=== PATIENT | male | born 1955 | race Caucasian/White ===

== ENCOUNTER 2024-01-03 13:00 | Emergency (ER) | payer MEDICARE, OTHER ==
[~2024-01-03] VITALS: Ht 177.8 cm; Wt 82.0 kg
[2024-01-03 13:10] VITALS: O2SAT 99
[2024-01-03 16:41] VITALS: TEMP 97.4
[2024-01-03] MEDS: HYDROCODONE/ACETAMINOPHEN 5/325MG TABLET PO ONE (17:49)
[2024-01-03 20:00] VITALS: BP 160/88; PULSE 110; RESP 20
== END 2024-01-03 20:30 | disposition home or self-care (01) ==
LOC: ER 13:03
DX: L89.90 Pressure ulcer of unspecified site, unspecified stage (principal); R06.02 Shortness of breath; J98.8 Other specified respiratory disorders; J44.9 Chronic obstructive pulmonary disease, unspecified; E11.9 Type 2 diabetes mellitus without complications; K21.9 Gastro-esophageal reflux disease without esophagitis; E78.00 Pure hypercholesterolemia, unspecified; I10 Essential (primary) hypertension; Z86.73 Personal history of transient ischemic attack (TIA), and cerebral infarction without residual deficits; Z88.0 Allergy status to penicillin
CPT/HCPCS: 99285

== ENCOUNTER 2024-03-06 10:35 | Inpatient (IN) | payer MEDICARE, MEDICAID ==
[~2024-03-06] VITALS: Ht 162.6 cm; Wt 68.0 kg
[2024-03-06] MEDS: MORPHINE SULFATE 4 MG/ML INJ (FOR IV/IM USE) IV STA (11:11)
[2024-03-06] MEDS: ONDANSETRON HCL 4MG/2ML INJ IV STA (11:11)
[2024-03-06] MEDS: SODIUM CHLORIDE 0.9% 500 ML IV ONE (11:12)
[2024-03-06 11:24] LABS: BASOPHILS % 0.9 % (0.0-2.0); EOSINOPHILS % 0.2 % (0.0-5.0); HEMATOCRIT. 27.6 % (42.0-52.0); HEMOGLOBIN. 9.5 g/dL (14.0-18.0); LYMPHOCYTES % 21.3 % (20.0-50.0); MEAN CORPUSCULAR HEMOGLOBIN 30.8 pg (28.0-32.0); MEAN CORPUSCULAR HGB CONC 34.5 g/dL (31.0-37.0); MEAN CORPUSCULAR VOLUME 89.4 fL (80.0-94.0); MEAN PLATELET VOLUME 6.9 fl (7.4-10.4); MONOCYTES % 7.1 % (2.0-8.0); NEUTROPHILS % 70.5 % (40.0-76.0); PLATELET 564 x1000/uL (130-400); RED BLOOD CELL COUNT 3.09 mill/uL (4.7-6.1); RED CELL DISTRIBUTION WIDTH 17.8 % (11.6-14.6); WHITE BLOOD COUNT 6.6 x1000/uL (4.5-11.0)
[2024-03-06 11:37] LABS: INR 1.1; PROTHROMBIN TIME 11.9 sec (9.6-11.0)
[2024-03-06 11:38] LABS: CARBON DIOXIDE 33 mEq/L (21-32); CHLORIDE 100 mEq/L (98-107); SODIUM 138 mEq/L (136-145)
[2024-03-06 11:43] LABS: CREATININE 0.7 mg/dL (0.6-1.3); GLUCOSE 165 mg/dL (70-105)
[2024-03-06 11:44] LABS: UREA NITROGEN BLOOD 12 mg/dL (9-23)
[2024-03-06 11:58] LABS: CLARITY URINE TURBID (CLEAR); COLOR URINE YELLOW (YELLOW); GLUCOSE URINE NEGATIVE (NEGATIVE); KETONES URINE TRACE (NEGATIVE); LEUKOCYTE ESTERASE URINE 3+ (NEGATIVE); NITRITE URINE NEGATIVE (NEGATIVE); OCCULT BLOOD URINE 1+ (NEGATIVE); PH URINE 8.5 (4.5-8.0); PROTEIN URINE TRACE (NEGATIVE); SPECIFIC GRAVITY URINE 1.009 (1.005-1.030); UROBILINOGEN URINE 0.2 E.U./dL (0.2-1.0)
[2024-03-06 12:06] LABS: POTASSIUM 2.7 mEq/L (3.5-5.1)
[2024-03-06] MEDS ORDERED: KCL 10MEQ/50ML PREMIX 100 ML IV SCH ×2 (13:00→14:00)
[2024-03-06 13:02] LABS: SQUAMOUS EPITHELIAL CELL URINE NONE SEEN /lpf (RARE/1+); TRIPLE PHOSPHATE CRYSTAL URINE 1+ /lpf
[2024-03-06 13:03] LABS: BACTERIA URINE 4+
[2024-03-06] MEDS: DILTIAZEM HCL 5MG/ML 5ML VIAL IV ONE (14:39)
[2024-03-06] MEDS: KCL 20MEQ/100ML PREMIX 100 ML IV SCH (14:40)
[2024-03-06] MEDS: LORAZEPAM 2MG/ML INJ IV ONE (15:05)
[2024-03-06] MEDS: DILTIAZEM HCL 125 MG in DEXT 5% WATER 100 ML IV ONE (15:13)
[2024-03-06] MEDS ORDERED: DEXTROSE 50% WATER 50ML SYRINGE IV PRN (15:15)
[2024-03-06] MEDS ORDERED: IPRATROPIUM/ALBUTEROL 0.5-3(2.5)MG/3ML NEB HHN PRN (15:15)
[2024-03-06] MEDS ORDERED: ACETAMINOPHEN 650MG/20.3ML UDC GT PRN (15:15)
[2024-03-06] MEDS ORDERED: CLONIDINE 0.1MG TABLET PO PRN (15:15)
[2024-03-06] MEDS ORDERED: HYDR25TA78 PO (15:29)
[2024-03-06] MEDS ORDERED: LORA-250 (15:29)
[2024-03-06] MEDS ORDERED: AMLO10TA80 PO (15:29)
[2024-03-06] MEDS ORDERED: HYDR-4001 PO (15:29)
[2024-03-06] MEDS ORDERED: CLON0.3T PO (15:29)
[2024-03-06] MEDS ORDERED: ATOR-2 PO (15:29)
[2024-03-06] MEDS ORDERED: RIVA20TA PO (15:29)
[2024-03-06] MEDS ORDERED: NALOXONE HCL 0.4MG/ML VIAL IV PRN (16:00)
[2024-03-06 16:28] LABS: IRON 26 ug/dL (65-175)
[2024-03-06] MEDS: CEFTRIAXONE 2GM/50ML 50 ML IV ONE (16:29)
[2024-03-06] MEDS: PANTOPRAZOLE SODIUM 40 MG/VIAL IV SCH (16:30)
[2024-03-06 16:31] LABS: PHOSPHORUS 3.1 mg/dL (2.5-4.9); TOTAL IRON BINDING CAPACITY 218 ug/dl (250-425)
[2024-03-06] MEDS: CLONIDINE HCL 0.1MG/24HR PATCH TD SCH (16:56)
[2024-03-06] MEDS: HYDROCODONE/ACETAMINOPHEN 5/325MG TABLET PO PRN (17:10)
[2024-03-06] MEDS: BLOOD SUGAR DIAGNOSTIC STRIP TEST SCH (17:26)
[2024-03-06] MEDS: KCL 20MEQ/100ML PREMIX 100 ML IV NR (17:34)
[2024-03-06] MEDS: INSULIN LISPRO 100 UNITS/ML SUBCUT SCH (17:35)
[2024-03-06 17:49] LABS: FERRITIN 132 ng/mL (22-322); FOLIC ACID (FOLATE) SERUM > 20.00 ng/mL (>5.38)
[2024-03-06 17:50] LABS: VITAMIN B12 SERUM 589 pg/mL (211-911)
[2024-03-06] MEDS: POTASSIUM CHLORIDE 20MEQ/PACKET PEG NR (18:58)
[2024-03-06] MEDS: IOHEXOL-350 100 ML BOTTLE ONE (19:04)
[2024-03-06] MEDS ORDERED: METOPROLOL TARTRATE 25MG TABLET PO SCH (21:00)
[2024-03-06 22:00] VITALS: BP 172/80; PULSE 87; RESP 23; TEMP 97.9
[2024-03-06] MEDS: ATORVASTATIN CALCIUM 40MG TABLET PO SCH (22:12)
[2024-03-06] MEDS: METOPROLOL TARTRATE 25MG TABLET PO SCH (22:14)
[2024-03-06 22:15] LABS: CREATINE KINASE 43 IU/L (46-171); CREATINE KINASE MB FRACTION 1.8 ng/mL (0.5-3.6)
[2024-03-06 22:16] LABS: TROPONIN I HIGH SENSITIVITY 29 ng/L (3.0-53)
[2024-03-06] MEDS: ACETAMINOPHEN 650MG/20.3ML UDC GT PRN (23:26)
[2024-03-07] VITALS (15 sets, daily range): BP systolic 92–220; BP diastolic 57–101; PULSE 61–84; RESP 15–30; TEMP 97.3–98.5
[2024-03-07 02:04] LABS: CREATINE KINASE MB FRACTION 1.6 ng/mL (0.5-3.6); TROPONIN I HIGH SENSITIVITY 34 ng/L (3.0-53)
[2024-03-07 02:05] LABS: CREATINE KINASE 44 IU/L (46-171)
[2024-03-07] MEDS ORDERED: MELATONIN 3MG TABLET PO SCH (02:30)
[2024-03-07] MEDS: MELATONIN 3MG TABLET PO PRN (02:47)
[2024-03-07 03:09] LABS: CLARITY URINE TURBID (CLEAR); COLOR URINE YELLOW (YELLOW); GLUCOSE URINE NEGATIVE (NEGATIVE); KETONES URINE NEGATIVE (NEGATIVE); LEUKOCYTE ESTERASE URINE 2+ (NEGATIVE); NITRITE URINE NEGATIVE (NEGATIVE); OCCULT BLOOD URINE 1+ (NEGATIVE); PH URINE 8.5 (4.5-8.0); PROTEIN URINE 1+ (NEGATIVE); SPECIFIC GRAVITY URINE 1.024 (1.005-1.030); UROBILINOGEN URINE 0.2 E.U./dL (0.2-1.0)
[2024-03-07 03:21] LABS: *AMPHETAMINES SCREEN URINE NEGATIVE (NEGATIVE); *BARBITURATES SCREEN URINE NEGATIVE (NEGATIVE); *BENZODIAZEPINES SCREEN URINE NEGATIVE (NEGATIVE); *COCAINE SCREEN URINE NEGATIVE (NEGATIVE); METHADONE URINE SCREEN NEGATIVE (NEGATIVE); OPIATES URINE SCREEN PRESUMPTIVE POSITIVE (NEGATIVE)
[2024-03-07 03:22] LABS: CANNABINOID URINE SCREEN NEGATIVE (NEGATIVE); ECSTASY MDMA SCREEN URINE NEGATIVE (NEGATIVE); PHENCYCLIDINE URINE SCREEN NEGATIVE (NEGATIVE)
[2024-03-07] MEDS: LABETALOL 5MG/ML SYR 20 MG/4 ML SYRINGE IV PRN (04:43)
[2024-03-07 06:27] LABS: EOSINOPHILS % 0.1 % (0.0-5.0); HEMATOCRIT. 27.3 % (42.0-52.0); HEMOGLOBIN. 9.5 g/dL (14.0-18.0); LYMPHOCYTES % 14.6 % (20.0-50.0); MEAN CORPUSCULAR HEMOGLOBIN 30.6 pg (28.0-32.0); MEAN CORPUSCULAR HGB CONC 34.7 g/dL (31.0-37.0); MEAN CORPUSCULAR VOLUME 88.1 fL (80.0-94.0); MEAN PLATELET VOLUME 7.1 fl (7.4-10.4); MONOCYTES % 6.8 % (2.0-8.0); NEUTROPHILS % 77.5 % (40.0-76.0); PLATELET 490 x1000/uL (130-400); RED BLOOD CELL COUNT 3.09 mill/uL (4.7-6.1); RED CELL DISTRIBUTION WIDTH 17.5 % (11.6-14.6); WHITE BLOOD COUNT 7.3 x1000/uL (4.5-11.0)
[2024-03-07 06:46] LABS: CARBON DIOXIDE 33 mEq/L (21-32); CHLORIDE 103 mEq/L (98-107); SODIUM 142 mEq/L (136-145)
[2024-03-07 06:47] LABS: CALCIUM 10.5 mg/dL (8.7-10.4)
[2024-03-07 06:51] LABS: CREATININE 0.6 mg/dL (0.6-1.3)
[2024-03-07 06:52] LABS: GLUCOSE 118 mg/dL (70-105); TRIGLYCERIDE 75 mg/dL (0-150); UREA NITROGEN BLOOD 10 mg/dL (9-23)
[2024-03-07 06:53] LABS: CREATINE KINASE MB FRACTION 1.9 ng/mL (0.5-3.6); LDL CHOLESTEROL 33 mg/dL (5-100); TROPONIN I HIGH SENSITIVITY 28 ng/L (3.0-53)
[2024-03-07 06:54] LABS: CHOLESTEROL 83 mg/dL (<200); HDL CHOLESTEROL 38 mg/dL (>55); T4 FREE 1.29 ng/dL (0.89-1.76)
[2024-03-07 07:01] LABS: CREATINE KINASE 42 IU/L (46-171)
[2024-03-07 08:11] LABS: RBC URINE 0-2 /hpf (0-2); SQUAMOUS EPITHELIAL CELL URINE NONE SEEN /lpf (RARE/1+); WBC URINE 0-2 /hpf (0-2)
[2024-03-07 08:12] LABS: BACTERIA URINE 3+; TRIPLE PHOSPHATE CRYSTAL URINE 1+ /lpf
[2024-03-07] MEDS: LABETALOL 5MG/ML SYR 20 MG/4 ML SYRINGE IV NR (08:19)
[2024-03-07] MEDS: AMLODIPINE 10MG TABLET PEG SCH (08:26)
[2024-03-07] MEDS: POTASSIUM CHLORIDE 20MEQ/PACKET PEG NR (08:51)
[2024-03-07] MEDS ORDERED: CEFTRIAXONE 1GM/50ML 50 ML IV SCH (09:00)
[2024-03-07] MEDS ORDERED: LABETALOL 5MG/ML SYR 20 MG/4 ML SYRINGE IV NR (09:00)
[2024-03-07] MEDS ORDERED: SODIUM CHLORIDE 3% FOR INH 4ML NEB INH NR (10:00)
[2024-03-07] MEDS: GUAIFENESIN 200MG/10ML SUGAR FREE UDC PEG PRN (10:06)
[2024-03-07] MEDS: CLONIDINE 0.2MG TABLET PO SCH (10:07)
[2024-03-07] MEDS: LACTULOSE 20G/30ML UDC PO SCH (10:08)
[2024-03-07] MEDS: CEFTRIAXONE 1GM/50ML 50 ML IV SCH (12:19)
[2024-03-07 12:58] LABS: TROPONIN I HIGH SENSITIVITY 30 ng/L (3.0-53)
[2024-03-07] MEDS: HYDRALAZINE HCL 25MG TABLET PEG SCH ×2 (15:13→21:50)
[2024-03-07] MEDS: HYDRALAZINE 20MG/ML VIAL IV NR (15:14)
[2024-03-07] MEDS: ONDANSETRON HCL 4MG/2ML INJ IV PRN (16:31)
[2024-03-07] MEDS: RIVAROXABAN 20 MG TABLET PO SCH (17:05)
[2024-03-07 21:04] LABS: TROPONIN I HIGH SENSITIVITY 24 ng/L (3.0-53)
[2024-03-07] MEDS: DOCUSATE SODIUM SUGAR FREE 100MG/10ML UDC PEG PRN (21:49)
[2024-03-07] MEDS ORDERED: HYDRALAZINE HCL 25MG TABLET PEG SCH (22:00)
[2024-03-08] VITALS (10 sets, daily range): BP systolic 108–136; BP diastolic 67–113; PULSE 52–71; RESP 14–23; TEMP 97–98.2; O2SAT 98
[2024-03-08] MEDS: INSULIN LISPRO 100 UNITS/ML SUBCUT SCH ×2 (00:15→07:03)
[2024-03-08] MEDS: BLOOD SUGAR DIAGNOSTIC STRIP TEST SCH (06:00)
[2024-03-08 06:16] LABS: HEMATOCRIT 26.1 % (42.0-52.0); HEMOGLOBIN 9.1 g/dL (14.0-18.0); MEAN CORPUSCULAR HEMOGLOBIN 31.2 pg (28.0-32.0); MEAN CORPUSCULAR HGB CONC 34.8 g/dL (31.0-37.0); MEAN CORPUSCULAR VOLUME 89.5 fL (80.0-94.0); PLATELET 454 x1000/uL (130-400); RED BLOOD CELL COUNT 2.92 mill/uL (4.7-6.1); RED CELL DISTRIBUTION WIDTH 17.8 % (11.6-14.6); WHITE BLOOD COUNT 9.4 x1000/uL (4.5-11.0)
[2024-03-08 06:36] LABS: CHLORIDE 104 mEq/L (98-107); POTASSIUM 3.5 mEq/L (3.5-5.1); SODIUM 139 mEq/L (136-145)
[2024-03-08 06:40] LABS: CARBON DIOXIDE 30 mEq/L (21-32)
[2024-03-08 06:42] LABS: CALCIUM 10.4 mg/dL (8.7-10.4)
[2024-03-08 06:46] LABS: GLUCOSE 129 mg/dL (70-105)
[2024-03-08 06:47] LABS: UREA NITROGEN BLOOD 22 mg/dL (9-23)
[2024-03-08] MEDS: FAMOTIDINE 20MG TABLET PO SCH (09:49)
[2024-03-08] MEDS ORDERED: LIP40 PO (11:01)
[2024-03-08] MEDS ORDERED: FAMO20TA8 PO (11:01)
[2024-03-08] MEDS ORDERED: LACT10SO7 PO (11:09)
[2024-03-08] MEDS ORDERED: CLON0.2T PO (12:09)
[2024-03-08] MEDS ORDERED: METO-385 PO (12:09)
== END 2024-03-08 22:05 | disposition home or self-care (01) | DRG 391 ==
LOC: ER 11:13 → 5EST 13:55 → EDBEDREQSVC 14:14 → EDBEDREQTM 14:14 → EDBEDREQSVC 18:55
PROVIDERS: ADMIT Internal Medicine; ATTEND Internal Medicine
DX: K59.00 Constipation, unspecified (principal); J18.9 Pneumonia, unspecified organism; L89.153 Pressure ulcer of sacral region, stage 3; I16.1 Hypertensive emergency; N39.0 Urinary tract infection, site not specified; E87.3 Alkalosis; I69.354 Hemiplegia and hemiparesis following cerebral infarction affecting left non-dominant side; J44.0 Chronic obstructive pulmonary disease with (acute) lower respiratory infection; I48.91 Unspecified atrial fibrillation; E87.6 Hypokalemia; I71.40 Abdominal aortic aneurysm, without rupture, unspecified; D64.9 Anemia, unspecified; E78.00 Pure hypercholesterolemia, unspecified; I10 Essential (primary) hypertension; E83.52 Hypercalcemia; F03.90 Unspecified dementia, unspecified severity, without behavioral disturbance, psychotic disturbance, mood disturbance, and anxiety; I44.4 Left anterior fascicular block; N40.0 Benign prostatic hyperplasia without lower urinary tract symptoms; R13.10 Dysphagia, unspecified; Z88.0 Allergy status to penicillin; Z93.1 Gastrostomy status; Z86.718 Personal history of other venous thrombosis and embolism; Z82.3 Family history of stroke; Z79.899 Other long term (current) drug therapy; Z79.4 Long term (current) use of insulin; Z79.01 Long term (current) use of anticoagulants; Z74.01 Bed confinement status
CPT/HCPCS: 36415; 71045; 73030; 74177; 80048; 80061; 80305; 81003; 82550; 82553; 82607; 82728; 82746; 82962; 83036; 83540; 83550; 83605; 83735; 84100; 84145; 84439; 84443; 84484; 85025; 85027; 93005; 93306; 93970; 99285; C9113; J0360; J0696; J1815; J2270; J2405; J3480; J3490; J7030; J7060; Q9967

== ENCOUNTER 2024-03-09 14:59 | Inpatient (IN) | payer MEDICARE, MEDICAID ==
[~2024-03-09] VITALS: Ht 165.1 cm; Wt 64.9 kg
[~2024-03-09 14:59] MED LIST: AMLO10TA80 PO; CLON0.2T PO; FAMO20TA8 PO; HYDR-4001 PO; HYDR25TA78 PO; LACT10SO7 PO; LIP40 PO; LORA-250; METO-385 PO; RIVA20TA PO
[2024-03-09 15:32] LABS: BASOPHILS % 0.9 % (0.0-2.0); EOSINOPHILS % 0.9 % (0.0-5.0); HEMATOCRIT. 28.4 % (42.0-52.0); HEMOGLOBIN. 9.7 g/dL (14.0-18.0); LYMPHOCYTES % 29.6 % (20.0-50.0); MEAN CORPUSCULAR HEMOGLOBIN 30.6 pg (28.0-32.0); MEAN CORPUSCULAR VOLUME 89.9 fL (80.0-94.0); MEAN PLATELET VOLUME 7.2 fl (7.4-10.4); MONOCYTES % 5.5 % (2.0-8.0); NEUTROPHILS % 63.1 % (40.0-76.0); PLATELET 486 x1000/uL (130-400); RED BLOOD CELL COUNT 3.16 mill/uL (4.7-6.1); RED CELL DISTRIBUTION WIDTH 17.8 % (11.6-14.6); WHITE BLOOD COUNT 7.7 x1000/uL (4.5-11.0)
[2024-03-09 15:37] LABS: CHLORIDE 99 mEq/L (98-107); POTASSIUM 3.5 mEq/L (3.5-5.1); SODIUM 141 mEq/L (136-145)
[2024-03-09 15:38] LABS: CALCIUM 10.2 mg/dL (8.7-10.4); CARBON DIOXIDE 32 mEq/L (21-32)
[2024-03-09 15:43] LABS: CREATININE 0.7 mg/dL (0.6-1.3); GLUCOSE 117 mg/dL (70-105); UREA NITROGEN BLOOD 23 mg/dL (9-23)
[2024-03-09 15:44] LABS: TROPONIN I HIGH SENSITIVITY 16 ng/L (3.0-53)
[2024-03-09 15:45] LABS: ALANINE AMINOTRANSFERASE 11 IU/L (10-49); ALBUMIN 4.1 g/dL (3.2-4.8); ASPARTATE AMINOTRANSFERASE 17 IU/L (<34); BILIRUBIN TOTAL 0.5 mg/dL (0.1-1.0); PROTEIN TOTAL 7.7 g/dL (6.0-8.3)
[2024-03-09] MEDS: ACETAMINOPHEN 325MG TABLET PO ONE (17:13)
[2024-03-09] MEDS: KETOROLAC 15MG/ML VIAL IV ONE (17:28)
[2024-03-09] MEDS ORDERED: ONDANSETRON HCL 4MG/2ML INJ IV PRN (17:30)
[2024-03-09] MEDS ORDERED: DOCUSATE SODIUM 100MG CAPSULE PO PRN (17:30)
[2024-03-09] MEDS ORDERED: NALOXONE HCL 0.4MG/ML VIAL IV PRN (17:45)
[2024-03-09] MEDS ORDERED: IOHEXOL-350 100 ML BOTTLE ONE (19:07)
[2024-03-09] MEDS: VANCOMYCIN 1.25GM PMX (XELLIA) 250 ML IV NR (19:41)
[2024-03-10] VITALS (7 sets, daily range): BP systolic 151–187; BP diastolic 54–110; PULSE 63–89; RESP 18–58; TEMP 97.1–99
[2024-03-10] MEDS ORDERED: DEXTROSE 50% WATER 50ML SYRINGE IV PRN (01:00)
[2024-03-10] MEDS: TRAMADOL 50MG TABLET PO PRN (01:14)
[2024-03-10] MEDS: DIPHENHYDRAMINE 50MG/ML VIAL IV PRN (01:15)
[2024-03-10] MEDS: BLOOD SUGAR DIAGNOSTIC STRIP TEST SCH (06:10)
[2024-03-10] MEDS: VANCOMYCIN 750MG PREMIX 150 ML IV SCH (06:11)
[2024-03-10] MEDS: INSULIN LISPRO 100 UNITS/ML SUBCUT SCH (06:11)
[2024-03-10 06:41] LABS: BASOPHILS % 1.3 % (0.0-2.0); EOSINOPHILS % 0.8 % (0.0-5.0); HEMATOCRIT. 27.9 % (42.0-52.0); HEMOGLOBIN. 9.7 g/dL (14.0-18.0); LYMPHOCYTES % 25.7 % (20.0-50.0); MEAN CORPUSCULAR HEMOGLOBIN 30.9 pg (28.0-32.0); MEAN CORPUSCULAR HGB CONC 34.8 g/dL (31.0-37.0); MEAN CORPUSCULAR VOLUME 88.7 fL (80.0-94.0); MEAN PLATELET VOLUME 7.6 fl (7.4-10.4); MONOCYTES % 7.6 % (2.0-8.0); NEUTROPHILS % 64.6 % (40.0-76.0); PLATELET 396 x1000/uL (130-400); RED BLOOD CELL COUNT 3.14 mill/uL (4.7-6.1); RED CELL DISTRIBUTION WIDTH 18.2 % (11.6-14.6); WHITE BLOOD COUNT 6.7 x1000/uL (4.5-11.0)
[2024-03-10 07:06] LABS: T4 FREE 1.29 ng/dL (0.89-1.76); THYROID STIMULATING HORMONE 1.11 uIU/mL (0.55-4.78)
[2024-03-10] MEDS: ACETAMINOPHEN 325MG TABLET PO PRN (10:01)
[2024-03-10 10:30] LABS: BG BASE EXCESS 5.7 mmol/L (-2.0-2.0); BG CARBOXYHEMOGLOBIN 0.3 % (0.5-1.5); BG DEOXYHEMOGLOBIN 3.1 % (0.0-5.0); BG FRACTION INSPIRED OXYGEN 21; BG HCO3 ACT 30.2 mmol/L (22.0-26.0); BG METHEMOGLOBIN 0.1 % (0.0-1.5); BG OXYGEN SATURATION 96.9 % (92.0-98.5); BG OXYHEMOGLOBIN 96.5 % (94.0-97.0); BG PCO2 43.5 mmHg (35.0-45.0); BG PH 7.459 (7.350-7.450); BG PO2 96.2 mmHg (75.0-100.0); BG SAMPLE SITE LEFT RADIAL; BG TOTAL HEMOGLOBIN 10.2 g/dL (12.0-18.0); BG VENT MODE ROOM AIR
[2024-03-10] MEDS: FAMOTIDINE 20MG TABLET PO SCH (12:06)
[2024-03-10] MEDS: CLONIDINE 0.2MG TABLET PO SCH (12:06)
[2024-03-10] MEDS: RIVAROXABAN 20 MG TABLET PO SCH (12:06)
[2024-03-10] MEDS: POTASSIUM CHLORIDE 20MEQ TABLET SR PO NR (12:06)
[2024-03-10] MEDS: HYDRALAZINE HCL 25MG TABLET PO SCH (15:27)
[2024-03-10] MEDS: LACTULOSE 20G/30ML UDC PO SCH (18:02)
[2024-03-10] MEDS ORDERED: FAMOTIDINE(NEO) 1MG/ML SUSP PO SCH (21:00)
[2024-03-10] MEDS: ATORVASTATIN CALCIUM 40MG TABLET PO SCH (21:31)
[2024-03-10] MEDS: ZOLPIDEM TARTRATE 5MG TABLET PO PRN (21:32)
[2024-03-11] VITALS: BP 153/85; PULSE 80; RESP 19; TEMP 98.1
[2024-03-11 04:00] VITALS: BP 141/78; PULSE 62; RESP 19; TEMP 97.9
[2024-03-11] MEDS: METOPROLOL SUCCINATE 50MG ER TABLET PO SCH (06:26)
[2024-03-11 08:00] VITALS: BP 172/89; PULSE 60; RESP 18; TEMP 97.7
[2024-03-11 10:01] LABS: BASOPHILS % 1.1 % (0.0-2.0); HEMATOCRIT. 25.7 % (42.0-52.0); HEMOGLOBIN. 8.9 g/dL (14.0-18.0); LYMPHOCYTES % 17.3 % (20.0-50.0); MEAN CORPUSCULAR HEMOGLOBIN 30.9 pg (28.0-32.0); MEAN CORPUSCULAR HGB CONC 34.8 g/dL (31.0-37.0); MEAN CORPUSCULAR VOLUME 88.7 fL (80.0-94.0); MEAN PLATELET VOLUME 7.6 fl (7.4-10.4); MONOCYTES % 6.9 % (2.0-8.0); NEUTROPHILS % 71.7 % (40.0-76.0); PLATELET 353 x1000/uL (130-400); WHITE BLOOD COUNT 7.1 x1000/uL (4.5-11.0)
[2024-03-11 10:47] LABS: CHLORIDE 99 mEq/L (98-107); POTASSIUM 3.1 mEq/L (3.5-5.1); SODIUM 139 mEq/L (136-145)
[2024-03-11 10:48] LABS: CARBON DIOXIDE 31 mEq/L (21-32)
[2024-03-11 10:49] LABS: CALCIUM 10.2 mg/dL (8.7-10.4)
[2024-03-11 10:53] LABS: CREATININE 0.8 mg/dL (0.6-1.3); GLUCOSE 148 mg/dL (70-105); UREA NITROGEN BLOOD 22 mg/dL (9-23); VANCOMYCIN TROUGH 12.7 ug/mL (5.0-10.0)
[2024-03-11] MEDS: LORAZEPAM 2MG/ML INJ IV PRN (11:47)
[2024-03-11] MEDS: VANCOMYCIN 1GM/200ML PMX (BAXTER) IV SCH (12:56)
[2024-03-11] MEDS: AZITHROMYCIN 500MG/250ML IV SCH (16:33)
[2024-03-11] MEDS: CEFTRIAXONE 1GM/50ML 50ML IV SCH (16:33)
[2024-03-11 20:00] VITALS: BP 174/91; PULSE 63; RESP 18; TEMP 97.2
[2024-03-12] VITALS: BP 163/96; PULSE 61; RESP 22; TEMP 97.4
[2024-03-12 04:00] VITALS: BP 106/59; PULSE 51; RESP 19; TEMP 96.6
[2024-03-12 12:00] VITALS: BP 152/87; PULSE 69; RESP 19; TEMP 97.1
[2024-03-12 16:00] VITALS: BP 138/79; PULSE 69; RESP 16; TEMP 97.6
[2024-03-12] MEDS ORDERED: LISINOPRIL 20MG TABLET PO SCH (17:15)
[2024-03-12 20:00] VITALS: BP 150/78; PULSE 52; RESP 17; TEMP 97.9
[2024-03-12] MEDS: METOPROLOL SUCCINATE 50MG ER TABLET PO SCH (22:57)
[2024-03-12] MEDS: HYDRALAZINE HCL 25MG TABLET PO SCH (22:58)
[2024-03-13] VITALS: BP 165/87; PULSE 69; RESP 16; TEMP 97.7
[2024-03-13] MEDS: HYDRALAZINE 20MG/ML VIAL IV PRN (02:35)
[2024-03-13 04:00] VITALS: BP 133/69; PULSE 78; RESP 19; TEMP 97.5
[2024-03-13 07:01] LABS: CHLORIDE 97 mEq/L (98-107); POTASSIUM 3.5 mEq/L (3.5-5.1); SODIUM 137 mEq/L (136-145)
[2024-03-13 07:02] LABS: CARBON DIOXIDE 32 mEq/L (21-32)
[2024-03-13 07:06] LABS: CREATININE 0.8 mg/dL (0.6-1.3)
[2024-03-13 07:07] LABS: GLUCOSE 119 mg/dL (70-105); UREA NITROGEN BLOOD 21 mg/dL (9-23)
[2024-03-13 07:50] VITALS: BP 166/87; PULSE 85; RESP 17; TEMP 99
[2024-03-13] MEDS: LISINOPRIL 10MG TABLET PO SCH (08:56)
[2024-03-13 12:00] VITALS: BP 169/91; PULSE 64; RESP 18; TEMP 98.2
[2024-03-13] MEDS: GUAIFENESIN 200MG/10ML SUGAR FREE UDC PO PRN (12:35)
[2024-03-13 16:00] VITALS: BP 168/88; PULSE 66; RESP 20; TEMP 99.4
[2024-03-13 20:00] VITALS: BP 150/88; PULSE 83; RESP 19; TEMP 97.9
[2024-03-14] VITALS: BP 169/93; PULSE 66; RESP 20; TEMP 98.1
[2024-03-14 04:00] VITALS: BP 179/96; PULSE 69; RESP 20; TEMP 98.1
[2024-03-14 08:00] VITALS: BP_SYST 142; BP_SYST 159; BP_DIAS 82; BP_DIAS 84; PULSE 53; PULSE 63; RESP 16; RESP 20; TEMP 98.8
[2024-03-14] MEDS: SERTRALINE HCL 25MG TABLET PO SCH (08:49)
[2024-03-14 12:00] VITALS: BP 145/82; PULSE 53; RESP 16; TEMP 98.8
[2024-03-14 16:00] VITALS: BP 179/92; PULSE 68; RESP 17; TEMP 98.3
[2024-03-14] MEDS: AZITHROMYCIN 500 MG TABLET PO SCH (18:08)
[2024-03-14 20:00] VITALS: BP 185/95; PULSE 70; RESP 18; TEMP 96
[2024-03-15] VITALS (8 sets, daily range): BP systolic 158–194; BP diastolic 88–114; PULSE 73–86; RESP 16–19; TEMP 96.8–98.4; O2SAT 96–98
[2024-03-15] MEDS: ACETYLCYSTEINE 200MG/ML 20% VIAL 4ML INH SCH (09:27)
[2024-03-15] MEDS: IPRATROPIUM/ALBUTEROL 0.5-3(2.5)MG/3ML NEB HHN PRN (09:28)
[2024-03-15] MEDS: HYDRALAZINE 20MG/ML VIAL IV NR (16:54)
== END 2024-03-15 18:25 | disposition home health service (06) | DRG 177 ==
LOC: ER 15:10 → EDBEDREQ 16:51 → 7EST 03-10
PROVIDERS: ADMIT Hospitalist; ATTEND Hospitalist
DX: J69.0 Pneumonitis due to inhalation of food and vomit (principal); J96.01 Acute respiratory failure with hypoxia; J44.9 Chronic obstructive pulmonary disease, unspecified; I48.91 Unspecified atrial fibrillation; E78.00 Pure hypercholesterolemia, unspecified; Z79.01 Long term (current) use of anticoagulants; I71.40 Abdominal aortic aneurysm, without rupture, unspecified; I10 Essential (primary) hypertension; Z88.0 Allergy status to penicillin; Z87.440 Personal history of urinary (tract) infections; Z79.4 Long term (current) use of insulin; I69.398 Other sequelae of cerebral infarction; L89.151 Pressure ulcer of sacral region, stage 1; F41.9 Anxiety disorder, unspecified
CPT/HCPCS: 36415; 36600; 71045; 71275; 80048; 80053; 80061; 80202; 82375; 82805; 82962; 83036; 83880; 84439; 84443; 84484; 85025; 93005; 94640; 97162; 97166; 99285; C1893; J0360; J0456; J0696; J1200; J1885; J2060; J3370; J7608; Q9967

== ENCOUNTER 2025-03-04 15:36 | Emergency (ER) | payer MEDICARE, MEDICAID ==
[~2025-03-04] VITALS: Ht 170.2 cm; Wt 64.0 kg
[~2025-03-04 15:36] MED LIST changes: +ASCO500T20 GT; -CLON0.2T PO; +CYAN-33 GT; +DICY10SO PO; +DIPH-1205 PO; +EMPA25TA GT; +ESCI5TAB16 GT; +FAMO20TA8 GT; -FAMO20TA8 PO; +FLUT16SP15 NS; +GABA300C GT; +HYDR-4001 MT; -HYDR-4001 PO; +HYDR-4005 GT; +HYDR100T11 MT; -HYDR25TA78 PO; +INSU100I24 SQ; -LACT10SO7 PO; -LIP40 PO; -LORA-250; +LORA-250 GT; +LOSA100T33 MT; +MELA10TA20 GT; -METO-385 PO; +METR-167 GT; +NALO4SPR22; +POLY510P31 GT; +QUET25TA36 GT; +SACC250C GT; +SENN-289 GT; +TRAZ-251 GT; +ZINC220T3 GT; +ZOLP5TAB8 GT
[2025-03-04 15:43] VITALS: O2SAT 97
[2025-03-04 16:08] LABS: BASOPHILS % 0.8 % (0.0-2.0); EOSINOPHILS % 0.1 % (0.0-5.0); HEMOGLOBIN. 10.6 g/dL (14.0-18.0); LYMPHOCYTES % 37.2 % (20.0-50.0); MEAN CORPUSCULAR HEMOGLOBIN 31.9 pg (28.0-32.0); MEAN CORPUSCULAR HGB CONC 34.2 g/dL (31.0-37.0); MEAN CORPUSCULAR VOLUME 93.4 fL (80.0-94.0); MEAN PLATELET VOLUME 7.5 fl (7.4-10.4); MONOCYTES % 8.4 % (2.0-8.0); NEUTROPHILS % 53.5 % (40.0-76.0); PLATELET 322 x1000/uL (130-400); RED BLOOD CELL COUNT 3.32 mill/uL (4.7-6.1); RED CELL DISTRIBUTION WIDTH 19.3 % (11.6-14.6); WHITE BLOOD COUNT 4.1 x1000/uL (4.5-11.0)
[2025-03-04 16:16] LABS: CHLORIDE 100 mEq/L (98-107); SODIUM 137 mEq/L (136-145)
[2025-03-04 16:17] LABS: CALCIUM 9.2 mg/dL (8.7-10.4); CARBON DIOXIDE 31 mEq/L (21-32)
[2025-03-04 16:22] LABS: GLUCOSE 99 mg/dL (70-105); UREA NITROGEN BLOOD 24 mg/dL (9-23)
[2025-03-04] MEDS: HYDROCODONE/ACETAMINOPHEN 5/325MG TABLET PO ONE (16:31)
[2025-03-04 16:33] LABS: CREATININE 0.4 mg/dL (0.6-1.3)
[2025-03-04 17:52] VITALS: BP 164/85; PULSE 95; RESP 15; TEMP 36.8; O2SAT 97
== END 2025-03-04 17:57 | disposition home or self-care (01) ==
LOC: ER 15:36 → CANBEDREQ 16:34 → ER 17:57
DX: K94.23 Gastrostomy malfunction (principal); E11.9 Type 2 diabetes mellitus without complications; I48.91 Unspecified atrial fibrillation; Z79.4 Long term (current) use of insulin; Z79.84 Long term (current) use of oral hypoglycemic drugs; Z79.899 Other long term (current) drug therapy; Z86.73 Personal history of transient ischemic attack (TIA), and cerebral infarction without residual deficits; Z88.0 Allergy status to penicillin
CPT/HCPCS: 36415; 80048; 85025; 99284

== ENCOUNTER 2025-03-05 05:44 | Inpatient (IN) | payer MEDICARE, MEDICAID ==
[~2025-03-05] VITALS: Ht 172.7 cm; Wt 81.7 kg
[2025-03-05 05:50] VITALS: O2SAT 98
[2025-03-05] MEDS: LABETALOL 5MG/ML 4ML INJ IV ONE (07:09)
[2025-03-05 07:30] LABS: CHLORIDE 101 mEq/L (98-107); POTASSIUM 3.8 mEq/L (3.5-5.1); SODIUM 138 mEq/L (136-145)
[2025-03-05 07:31] LABS: CARBON DIOXIDE 32 mEq/L (21-32)
[2025-03-05 07:32] LABS: CALCIUM 9.2 mg/dL (8.7-10.4); EOSINOPHILS % 0.4 % (0.0-5.0); HEMATOCRIT. 30.7 % (42.0-52.0); HEMOGLOBIN. 10.3 g/dL (14.0-18.0); INR 1.1; LYMPHOCYTES % 32.1 % (20.0-50.0); MEAN CORPUSCULAR HEMOGLOBIN 31.4 pg (28.0-32.0); MEAN CORPUSCULAR HGB CONC 33.6 g/dL (31.0-37.0); MEAN CORPUSCULAR VOLUME 93.6 fL (80.0-94.0); MONOCYTES % 7.1 % (2.0-8.0); NEUTROPHILS % 59.4 % (40.0-76.0); PLATELET 306 x1000/uL (130-400); PROTHROMBIN TIME 11.9 sec (9.6-11.0); RED BLOOD CELL COUNT 3.28 mill/uL (4.7-6.1); WHITE BLOOD COUNT 4.2 x1000/uL (4.5-11.0)
[2025-03-05 07:36] LABS: CREATININE 0.5 mg/dL (0.6-1.3); GLUCOSE 85 mg/dL (70-105); UREA NITROGEN BLOOD 20 mg/dL (9-23)
[2025-03-05 08:00] VITALS: BP 174/101; PULSE 75; RESP 19; TEMP 36.6; O2SAT 98
[2025-03-05] MEDS: HYDRALAZINE 20MG/ML VIAL IV SCH (08:13)
[2025-03-05 12:00] VITALS: BP 209/114; PULSE 100; RESP 19; TEMP 36.1; O2SAT 99
[2025-03-05] MEDS ORDERED: HYDRALAZINE 20MG/ML VIAL IV SCH (12:00)
[2025-03-05] MEDS: DEXT 5%/0.45% NACL 500ML 500 ML IV ONE (12:00)
[2025-03-05] MEDS ORDERED: HYDRALAZINE 10 MG in SODIUM CHLORIDE 0.9% 49.5 ML IV PRN (12:30)
[2025-03-05] MEDS: HYDRALAZINE 20 MG in SODIUM CHLORIDE 0.9% 50 ML IV SCH (13:01)
[2025-03-05 15:00] VITALS: BP 151/110; PULSE 99; RESP 20; TEMP 36.4
[2025-03-05] MEDS ORDERED: NALOXONE HCL 0.4MG/ML VIAL IV PRN (15:30)
[2025-03-05 16:00] VITALS: BP 150/110; PULSE 99; RESP 20; TEMP 36.4; O2SAT 98
[2025-03-05] MEDS ORDERED: CLONIDINE HCL 0.3MG/24HR PATCH TD NR (16:00)
[2025-03-05] MEDS: MORPHINE SULFATE 2 MG/ML INJ (NOT FOR IM USE) IV PRN (16:08)
[2025-03-05] MEDS ORDERED: SENNOSIDES/DOCUSATE SOD 8.6/50MG TABLET PO PRN (17:45)
[2025-03-05 20:00] VITALS: BP 184/124; PULSE 112; RESP 18; TEMP 36.7; O2SAT 99
[2025-03-05] MEDS: LORAZEPAM 2MG/ML UD SYRINGE IV PRN (22:16)
[2025-03-05] MEDS ORDERED: ONDANSETRON HCL 4MG/2ML INJ IV PRN (22:30)
[2025-03-05] MEDS ORDERED: DIPHENHYDRAMINE 50MG/ML VIAL IV PRN (22:30)
[2025-03-05] MEDS ORDERED: ACETAMINOPHEN 650MG SUPP PR PRN ×2 (22:30)
[2025-03-06] VITALS: BP 169/98; PULSE 105; RESP 19; TEMP 36.6; O2SAT 98
[2025-03-06 03:20] LABS: BASOPHILS % 1.1 % (0.0-2.0); EOSINOPHILS % 0.1 % (0.0-5.0); HEMATOCRIT. 33.3 % (42.0-52.0); HEMOGLOBIN. 11.3 g/dL (14.0-18.0); LYMPHOCYTES % 24.1 % (20.0-50.0); MEAN CORPUSCULAR HEMOGLOBIN 31.4 pg (28.0-32.0); MEAN CORPUSCULAR VOLUME 92.4 fL (80.0-94.0); MEAN PLATELET VOLUME 7.4 fl (7.4-10.4); MONOCYTES % 8.4 % (2.0-8.0); NEUTROPHILS % 66.3 % (40.0-76.0); PLATELET 304 x1000/uL (130-400); WHITE BLOOD COUNT 4.1 x1000/uL (4.5-11.0)
[2025-03-06 03:26] LABS: INR 1.1; PROTHROMBIN TIME 12.1 sec (9.6-11.0)
[2025-03-06 03:31] LABS: CHLORIDE 101 mEq/L (98-107); POTASSIUM 3.2 mEq/L (3.5-5.1); SODIUM 141 mEq/L (136-145)
[2025-03-06 03:32] LABS: CALCIUM 9.4 mg/dL (8.7-10.4); CARBON DIOXIDE 31 mEq/L (21-32)
[2025-03-06 03:37] LABS: CREATININE 0.5 mg/dL (0.6-1.3); GLUCOSE 87 mg/dL (70-105); UREA NITROGEN BLOOD 20 mg/dL (9-23)
[2025-03-06 03:39] LABS: ALANINE AMINOTRANSFERASE 31 IU/L (10-49); ALBUMIN 3.7 g/dL (3.2-4.8); ASPARTATE AMINOTRANSFERASE 15 IU/L (<34); BILIRUBIN TOTAL 0.5 mg/dL (0.1-1.0); PROTEIN TOTAL 6.8 g/dL (6.0-8.3)
[2025-03-06 04:00] VITALS: BP 174/115; PULSE 63; RESP 19; TEMP 37.1; O2SAT 100
[2025-03-06 08:00] VITALS: BP 146/84; PULSE 100; RESP 20; TEMP 36.2; O2SAT 98
[2025-03-06] MEDS ORDERED: DOCUSATE SODIUM SUGAR FREE 100MG/10ML UDC NG SCH (09:00)
[2025-03-06 12:00] VITALS: BP 147/93; PULSE 76; RESP 20; TEMP 36.3; O2SAT 98
[2025-03-06] MEDS: BLOOD SUGAR DIAGNOSTIC STRIP TEST SCH (12:21)
[2025-03-06] MEDS ORDERED: ONDANSETRON HCL 4MG/2ML INJ IV PRN (15:00)
[2025-03-06] MEDS ORDERED: PROPOFOL 200MG/20ML VIAL IV ONE (15:24)
[2025-03-06] MEDS ORDERED: LEVOFLOXACIN 500MG PREMIX 100 ML IV ONE (15:48)
[2025-03-06 16:00] VITALS: BP 154/103; PULSE 77; RESP 20; TEMP 36.3; O2SAT 97
[2025-03-06 20:00] VITALS: BP 176/100; PULSE 62; RESP 18; TEMP 36.3; O2SAT 99
[2025-03-07] VITALS: BP 152/80; PULSE 94; RESP 18; TEMP 36.4; O2SAT 95
[2025-03-07 04:00] VITALS: BP 160/108; PULSE 112; RESP 18; TEMP 36.4; O2SAT 100
[2025-03-07] MEDS: KCL 20MEQ/100ML PREMIX 100 ML IV NR (04:48)
[2025-03-07] MEDS: HYDRALAZINE IV SCH (05:21)
[2025-03-07] MEDS: SODIUM CHLORIDE 0.9% IV SCH (05:21)
[2025-03-07] MEDS: METOCLOPRAMIDE HCL 5MG TABLET PO SCH (06:17)
[2025-03-07 08:00] VITALS: PULSE 50; RESP 20; TEMP 36.4; O2SAT 98
[2025-03-07] MEDS: PANTOPRAZOLE SODIUM 40 MG/VIAL IV SCH (09:00)
[2025-03-07 12:00] VITALS: BP 99/80; PULSE 62; RESP 18; TEMP 36.8; O2SAT 98
[2025-03-07] MEDS: POLYETHYLENE GLYCOL 3350 (17GM) 1 DOSE PACK GT SCH (12:45)
[2025-03-07] MEDS: LOSARTAN 100 MG TABLET PEG SCH (12:46)
[2025-03-07] MEDS: KETOROLAC 30MG/ML VIAL IM NR (15:47)
[2025-03-07 16:00] VITALS: BP 160/80; PULSE 56; RESP 19; TEMP 36; O2SAT 100
[2025-03-07] MEDS: HYDRALAZINE HCL 100MG TABLET PEG SCH (17:59)
[2025-03-07] MEDS: RIVAROXABAN 20 MG TABLET PEG SCH (17:59)
[2025-03-07] MEDS: TRAZODONE HCL 50MG TABLET PEG SCH (21:13)
== END 2025-03-07 23:45 | disposition home health service (06) | DRG 394 ==
LOC: ER 05:44 → 6EST 07:40 → ENRESERV 08:06
PROVIDERS: ADMIT Internal Medicine; ATTEND Internal Medicine
PROC: 0DH68UZ Insertion of Feeding Device into Stomach, Via Natural or Artificial Opening Endoscopic (ICD-10-PCS; principal; 2025-03-06)
PROC: 0DD78ZX Extraction of Stomach, Pylorus, Via Natural or Artificial Opening Endoscopic, Diagnostic (ICD-10-PCS; 2025-03-06)
DX: K94.23 Gastrostomy malfunction (principal); I48.20 Chronic atrial fibrillation, unspecified; R64 Cachexia; K22.2 Esophageal obstruction; K44.9 Diaphragmatic hernia without obstruction or gangrene; K29.70 Gastritis, unspecified, without bleeding; R13.12 Dysphagia, oropharyngeal phase; F32.A Depression, unspecified; E78.5 Hyperlipidemia, unspecified; K29.80 Duodenitis without bleeding; R62.7 Adult failure to thrive; I50.9 Heart failure, unspecified; I11.0 Hypertensive heart disease with heart failure; F41.9 Anxiety disorder, unspecified; J44.9 Chronic obstructive pulmonary disease, unspecified; G47.00 Insomnia, unspecified; I25.10 Atherosclerotic heart disease of native coronary artery without angina pectoris; E11.9 Type 2 diabetes mellitus without complications; D64.9 Anemia, unspecified; Y83.8 Other surgical procedures as the cause of abnormal reaction of the patient, or of later complication, without mention of misadventure at the time of the procedure; Z68.27 Body mass index [BMI] 27.0-27.9, adult; Z86.73 Personal history of transient ischemic attack (TIA), and cerebral infarction without residual deficits; Z74.01 Bed confinement status; Y92.89 Other specified places as the place of occurrence of the external cause; Z79.01 Long term (current) use of anticoagulants; Z88.0 Allergy status to penicillin
CPT/HCPCS: 36415; 76700; 80048; 80053; 82962; 85025; 88305; 88312; 88313; 99284; 99285; A4606; J0360; J1885; J1956; J2060; J2270; J2470; J2704; J3480; J3490; J7050; J8597